=== PATIENT | female | born 1955 | race Caucasian/White ===

== ENCOUNTER 2023-12-23 08:01 | Day surgery (SDC) | payer MEDICARE, BC ==
[~2023-12-23 08:01] MED LIST: Dexamethasone 4 MG/ML SDV ONE; Glycopyrrolate 0.2 MG/ML 5 ML MDV ONE; Neostigmine Methylsulfate 10 MG/10 ML MDV ONE; Ondansetron 4 MG/2 ML SDV ONE; Propofol 200 MG/20 ML SDV ONE; Rocuronium 50 MG/5 ML Vial ONE; Succinylcholine 200 MG/10 ML MDV ONE; fentaNYL 250 MCG/5 ML SDV ONE
[2023-12-23 08:26] LABS: HEMATOCRIT 36.4 % (34.3-46.0); HEMOGLOBIN 12.6 g/dL (11.2-15.5); MEAN CORPUSCULAR HEMOGLOBIN 30.7 pg (31.6-35.5); MEAN CORPUSCULAR HGB CONC 34.6 g/dL (31.6-35.5); MEAN CORPUSCULAR VOLUME 88.6 fL (81.4-99.0); RED BLOOD CELL COUNT 4.11 M/uL (3.77-5.24); WHITE BLOOD CELL COUNT,WBC 6.5 K/uL (3.2-11.0)
[2023-12-23] MEDS: Sodium Chloride 0.9% 1,000 ML IV SCH (08:38)
[2023-12-23 08:39] LABS: CALCIUM 8.7 mg/dL (8.5-10.1); CREATININE 0.9 mg/dL (0.6-1.0); EST CRCL DRUG DOSING (CG) 52.38 mL/min; POTASSIUM,K 3.9 mmol/L (3.6-5.2)
[2023-12-23] MEDS: metroNIDAZOLE/Normal Saline 500 MG in Premix Bag 1 BAG IV ONE (08:39)
[2023-12-23 08:43] LABS: ANION GAP 11.9 mmol/L (5.0-14.0)
[2023-12-23] MEDS: ceFAZolin 2 GM in Premix Bag 1 BAG IV ONE (09:40)
[2023-12-23] MEDS: Ropivacaine 40 ML, dexAMETHasone 8 MG, EPINEPHrine 0.4 MG, Sodium Chloride 0.9% 37.6 ML NERVRT SCH (10:23)
[2023-12-23] MEDS: Bupivacaine 0.5%/EPINEPHrine 1:200,000 50 ML MDV ONE (10:30)
[2023-12-23] MEDS ORDERED: Sugammadex Sodium 200 MG/2 ML VIAL IV ONE (10:30)
[2023-12-23] MEDS: Acetaminophen/HYDROcodone 325-5 MG Tab PO PRN (12:01)
[2023-12-23 13:10] VITALS: PULSE 65
[2023-12-23 13:29] VITALS: BP 130/70
== END 2023-12-23 14:05 | disposition home or self-care (01) ==
LOC: JP.SDS 08:01
PROVIDERS: ATTEND Surgery
DX: K35.80 Unspecified acute appendicitis (principal); E03.9 Hypothyroidism, unspecified; F32.0 Major depressive disorder, single episode, mild; Z79.899 Other long term (current) drug therapy; Z88.2 Allergy status to sulfonamides
CPT/HCPCS: 00840; 36415; 44970; 80048; 85027; 88304; 88341; 88342; 93005; 93010; A9270; J0171; J0330; J0690; J1100; J1596; J1836; J2405; J2704; J2710; J2795; J3010; J3490; J7030

== ENCOUNTER 2024-02-27 07:40 | Day surgery (SDC) | payer MEDICARE, BC ==
[2024-02-27] MEDS ORDERED: fentaNYL 100 MCG/2 ML SDV ONE (08:02)
[2024-02-27] MEDS ORDERED: Propofol 200 MG/20 ML SDV ONE (08:02)
[2024-02-27] MEDS: Lactated Ringers 1,000 ML IV SCH (08:43)
[2024-02-27 09:49] VITALS: BP 135/76; PULSE 66
== END 2024-02-27 10:00 | disposition home or self-care (01) ==
LOC: JP.SDS 07:40
PROVIDERS: ATTEND Surgery
DX: Z12.11 Encounter for screening for malignant neoplasm of colon (principal); K57.30 Diverticulosis of large intestine without perforation or abscess without bleeding; Z88.2 Allergy status to sulfonamides
CPT/HCPCS: G0121; J2704; J3010; J7120; 00812-QZ